=== PATIENT | female | born 1985 | race Caucasian/White ===

== ENCOUNTER 2019-11-26 20:22 | Emergency (ER) | payer OTHER ==
--- NOTE | 2019-11-26 20:31 | PDOC ---
History of Present Illness - General Stated Complaint: SYNCOPE,VOMITING - History of Present Illness Initial Comments: The pt is a 34F w/ no reported PMH who presents from upstairs as a rapid response. She was visiting a family member when she started to feel nauseated and cold. She was then noted to have an episode of being 'rigid' before returning to baseline approximately 5 minutes later. At this time the pt denies any symptoms. Denies recent fevers, vision changes, chest pain, trouble breathing, abdominal pain, dysuria, hematuria, changes in sensation. 11/26/19 20:58 Past History - Past Medical History Allergies/Adverse Reactions: Allergies Allergy/AdvReac Type Severity Reaction Status Date / Time strawberry Allergy Verified 11/26/19 22:17 Review of Systems - Review of Systems Able to Perform ROS?: Yes Comments:: GENERAL/CONSTITUTIONAL: No fever or chills. No weakness HEAD, EYES, EARS, NOSE AND THROAT: No change in vision. No change in hearing. No sore throat CARDIOVASCULAR: No chest pain or shortness of breath RESPIRATORY: Denies cough, hemoptysis GASTROINTESTINAL: No nausea, vomiting, diarrhea or constipation GENITOURINARY: No dysuria, frequency, or change in urination MUSCULOSKELETAL: No joint or muscle swelling or pain. No neck or back pain SKIN: No rash NEUROLOGIC: No vertigo, or change in strength/sensation ENDOCRINE: No increased thirst. No abnormal weight change HEMATOLOGIC/LYMPHATIC: No anemia, easy bleeding, or history of blood clots ALLERGIC/IMMUNOLOGIC: No hives or skin allergy 11/26/19 20:29 Is the patient limited Bengali proficient: No *Physical Exam - Physical Exam GENERAL: Awake, alert, and oriented to person/place/time, in no acute distress HEAD: No signs of trauma, normocephalic, atraumatic EYES: PERRLA, EOMI, sclera anicteric, conjunctiva clear ENT: Hearing grossly normal, nares patent, oropharynx clear without exudates. No uvular deviation. Moist mucosa LUNGS: No distress, speaks in full sentences, clear to auscultation bilaterally HEART: Regular rate and rhythm, normal S1 and S2, no murmurs appreciated, peripheral pulses normal and equal bilaterally ABDOMEN: Soft, nontender, normoactive bowel sounds. No guarding, no rebound EXTREMITIES: Normal inspection, Normal range of motion, no edema. No clubbing or cyanosis NEUROLOGICAL: Cranial nerves II through XII grossly intact. Normal speech, normal gait, no focal sensorimotor deficits SKIN: Warm, Dry 11/26/19 20:29 ED Treatment Course - LABORATORY CBC & Chemistry Diagram: 11/26/19 21:40 11/26/19 21:40 Medical Decision Making - Medical Decision Making The pt is a 34F w/ no reported PMH who presents for evaluation s/p episode of N/ V and reported posturing Consider vasovagal vs new onset seizure ED Course CMP, CBC, Trop I CT head Fever noted, will give Tylenol 975mg PO once 11/26/19 22:[address] w/o acute pathology Labs overall unremarkable Pt feels improved/at baseline at this time Plan for D/C w/ PCP f/u Discharge instructions and return precautions given Patient in agreement and verbalized understanding Dispo: Home 11/27/19 00:40 Discharge - Discharge Information Problems reviewed: Yes Clinical Impression/Diagnosis: Vasovagal episode Condition: Stable Disposition: HOME - Admission No - Follow up/Referral Referrals: Delmis Fernandes [Primary Care Provider] - - Patient Discharge Instructions Patient Printed Discharge Instructions: Fainting Additional Instructions: You were seen in the Emergency Department for evaluation after a likely vasovagal episode with possibility that it could have been a first seizure. Your CT and labs were unremarkable. Review the handout provided at discharge. Follow up with your primary care provider within a week. Return to the Emergency Department if you develop fevers, chest pain, trouble breathing, worsening symptoms, or any new/concerning symptoms. - Post Discharge Activity
--- NOTE | 2019-11-26 21:30 | PDOC ---
Documentation entered by Evens Rebollar SCRIBE, acting as scribe for Alisha Rodriguez MD. Alisha Rodriguez MD: This documentation has been prepared by the Keturah wheat Angel, SCRIBE, under my direction and personally reviewed by me in its entirety. I confirm that the documentation accurately reflects all work, treatment, procedures, and medical decision making performed by me. Attending Attestation - Resident Resident Name: Vu Patel - ED Attending Attestation I have performed the following: I have examined & evaluated the patient, The case was reviewed & discussed with the resident, I agree w/resident's findings & plan, Exceptions are as noted - HPI HPI: 11/26/19 21:30 Is a 34-year-old female who is visiting a friend in the hospital and she became a rapid response after she had a witnessed syncopal episode. She states that she felt nauseous and she developed a headache and then she fainted and bystanders said that she had some posturing. The time she is brought down to the emergency department she was back to baseline - Physicial Exam PE: 11/26/19 21:37 wnwd 34 yo female s/p apparent faiinting/?atyrpical seizure activity head ncat neck supple oral no trauma lungs ca b/l cvs [id number] abd nontender skin warm and dry extremities no deformities neuro axox3,motor strength 5/5 b/l, no drift,no ataxia - Medical Decision Making 11/26/19 21:31 Concern for syncope versus possible partial complex seizure versus vasovagal episode Plan CBC, , EKG, CAT scan of the head, chemistry 11/27/19 02:21 ct scan head no acute intracranial pathology labs essentially unremarkable pt d/c home
[2019-11-26] MEDS ORDERED: ACETAMINOPHEN 325 MG TABLET (FP) PO ONE (22:14)
[2019-11-26 22:15] VITALS: BP 102/59; PULSE 81; TEMP 101; BMI 23.0
[2019-11-26 22:20] LABS: BASO % 0.2 % (0-2.0); EOS % 1.9 % (0-4.5); HEMATOCRIT 39.9 % (32.4-45.2); HEMOGLOBIN 13.5 GM/dL (10.7-15.3); LYMPH % 9.8 % (8-40); MCH 34.4 pg (25.7-33.7); MEAN CELL VOLUME 101.3 fl (80-96); MEAN PLT VOLUME 9.1 fl (7.5-11.1); NEUT % 81.1 % (42.8-82.8); PLATELET COUNT 148 K/MM3 (134-434); RBC 3.93 M/mm3 (3.60-5.2); RDW 12.2 % (11.6-15.6); WHITE BLOOD COUNT 7.3 K/mm3 (4.0-10.0)
[2019-11-26 22:43] LABS: ALBUMIN 3.7 g/dl (3.4-5.0); BILIRUBIN,TOTAL 0.7 mg/dL (0.2-1); BLOOD UREA NITROGEN 13.6 mg/dL (7-18); CALCIUM 8.2 mg/dL (8.5-10.1); CREATININE 0.7 mg/dL (0.55-1.3); POTASSIUM 4.1 mmol/L (3.5-5.1); TOT PROT 6.7 g/dl (6.4-8.2)
--- NOTE | 2019-11-26 23:40 | RAPID ---
Physical Examination Vital Signs: Vital Signs Temperature 101 F H 11/26/19 21:10 Pulse Rate 81 11/26/19 21:10 Respiratory Rate 20 11/26/19 21:10 Blood Pressure 102/59 L 11/26/19 21:10 O2 Sat by Pulse Oximetry (%) 100 11/26/19 21:10 Labs: CBC, BMP 11/26/19 21:40 11/26/19 21:40 Rapid Response - Rapid Response Assessment: Rapid response called overhead at 20:14 to pt room in 4 W . [employer] responded immediately. Pt was visiting her grandfather, seen posturing with vomit on herself. Nurse states that pt was altered, unresponsive , and was posturing. pt then vomited. pt was in this condition for a few minutes. BP 102/ 59, WA 83 When evaluated by [employer] ,pt was seen very cool to touch, slurred speech but alert and oriented x 3. pt appeared pale +S1S2 no mrg CTA b/l no wrr Pt was brought down to ED and sign out was given to ED providers
--- NOTE | 2019-11-27 17:06 | EKG ---
Test Reason : Blood Pressure : / mmHG Vent. Rate : 080 BPM Atrial Rate : 080 BPM P-R Int : 138 ms QRS Dur : 082 ms QT Int : 372 ms P-R-T Axes : 080 084 068 degrees QTc Int : 429 ms NORMAL SINUS RHYTHM POSSIBLE LEFT ATRIAL ENLARGEMENT BORDERLINE ECG NO PREVIOUS ECGS AVAILABLE Confirmed by PHYLLIS BULLARD, EUGENIA ([id number]) on 11/27/2019 5:06:00 PM Referred By: Confirmed By:EUGENIA FERGUSON MD
== END 2019-11-27 00:48 | disposition home or self-care (01) ==
LOC: JER 20:22
DX: R55 Syncope and collapse (principal); Z91.018 Allergy to other foods
CPT/HCPCS: 36415; 70450-TC; 80053; 84703; 85025; 93005; 93010; 99285-25